=== PATIENT | female | born 1940 | race Caucasian/White ===

== ENCOUNTER 2017-08-16 09:15 | Emergency (ER) | payer MEDICARE, MEDICAID ==
--- NOTE | 2017-08-16 10:39 | RAD ---
LEFT HIP 2 VIEWS: Date: 08/16/17 HISTORY: Fall. Left hip injury. FINDINGS: There is mild joint space narrowing, osteophytosis, and subchondral sclerosis. Femoral head contour i s maintained. No acute fracture, dislocation, or aggressive osseous erosions. Radiopaque sutures over lie the pelvis. IMPRESSION: Mild osteoarthritic changes left hip. POS: [facility]
--- NOTE | 2017-08-16 10:40 | RAD ---
AP PELVIS 1 VIEW: Date: 08/16/17 HISTORY: Fall. Pelvic injury. FINDINGS: Sacral ala and pelvic rings are intact. Degenerative changes of the hips, sacroiliac joints, and lumb ar spine are apparent. Large amount of stool is visualized throughout the colon. Opaque sutures overl ie the left pelvis. Metallic ring over the lower left sacrum is also likely related to prior surgery. IMPRESSION: 1. No displaced fractures. 2. Mild osteoarthritic change of the hips. POS: [facility]
== END 2017-08-16 10:25 | disposition home or self-care (01) ==
LOC: MADERS 09:15
DX: S70.02XA Contusion of left hip, initial encounter (principal); Z79.891 Long term (current) use of opiate analgesic; Z79.899 Other long term (current) drug therapy; W19.XXXA Unspecified fall, initial encounter
CPT/HCPCS: 72170

== ENCOUNTER 2018-05-08 14:44 | Outpatient (CLI) | payer MEDICARE, MEDICAID ==
--- NOTE | 2018-05-08 15:53 | RAD ---
RIGHT SHOULDER THREE VIEWS: HISTORY: Shoulder pain. COMPARISON: None. FINDINGS: No acute fracture or malalignment. The soft tissues are unremarkable. There is mild degenerative na rrowing of the acromioclavicular joint. The visualized ribs are unremarkable. IMPRESSION: No acute displaced fracture or malalignment. POS: [facility]
== END 2018-05-08 14:45 | disposition home or self-care (01) ==
LOC: MADRAD 14:44
PROVIDERS: ATTEND Family Medicine
DX: M25.511 Pain in right shoulder (principal)